=== PATIENT | female | born 1945 | race Hispanic/Latino ===

== ENCOUNTER 2022-05-25 10:20 | Emergency (ER) | payer MEDICARE ==
[~2022-05-25] VITALS: Ht 157.5 cm; Wt 61.4 kg
[2022-05-25] MEDS ORDERED: FAMOTIDINE 20 MG/2 ML VIAL IV STA (10:42)
[2022-05-25] MEDS ORDERED: ONDANSETRON HCL INJ 2MG/ML 2ML 2 MG/ML VIAL IV STA ×2 (10:42→16:44)
[2022-05-25] MEDS ORDERED: TRAMADOL HCL 50 MG TAB PO ONE ×2 (11:00→16:45)
[2022-05-25] MEDS ORDERED: CLONIDINE HCL 0.1 MG TAB PO ONE (11:00)
[2022-05-25] MEDS ORDERED: SODIUM CHLORIDE 0.9% 1000ML 1,000 ML IV SCH (11:15)
[2022-05-25] MEDS ORDERED: SODIUM CHLORIDE 0.9% 1000ML 1,000 ML ONE ×2 (11:34→12:16)
[2022-05-25] MEDS ORDERED: SODIUM CHLORIDE 0.9% 100 ML ONE (11:44)
[2022-05-25] MEDS ORDERED: IOPAMIDOL 370 MG/ML 100 ML INFUS..BTL INJ ONE (11:44)
[2022-05-25] MEDS ORDERED: PROMETHAZINE 12.5MG/ NACL 0.9% 12.5 MG/50 ML BAG IV ONE (11:45)
[2022-05-25] MEDS ORDERED: POTASSIUM CHLORIDE 20 MEQ TAB CR PO ONE (12:00)
[2022-05-25] MEDS ORDERED: POTASSIUM CHLORIDE 20MEQ/100ML 200 ML IV ONE (12:00)
[2022-05-25] MEDS ORDERED: PROMETHAZINE HCL (IM) 25 MG/ML VIAL IM ONE (12:16)
[2022-05-25] MEDS ORDERED: POTASSIUM CHLORIDE 20MEQ/100ML 100 ML ONE (12:17)
[2022-05-25] MEDS ORDERED: LABETALOL HCL 5 MG/ML 20ML VIAL IV STA ×2 (14:14→14:59)
[2022-05-25] MEDS ORDERED: ULTRAM 50MG50 MG PO (14:17)
[2022-05-25] MEDS ORDERED: OMEPRAZOLE40 MG PO (14:17)
[2022-05-25] MEDS ORDERED: TIZANIDINE HCL4 M1 PO (14:17)
[2022-05-25] MEDS ORDERED: CARVEDILOL12.5 MG PO (14:17)
[2022-05-25] MEDS ORDERED: LOSARTAN POTAS100 MG PO (14:17)
[2022-05-25] MEDS ORDERED: SERTRALINE HCL50 MG PO (14:17)
[2022-05-25] MEDS ORDERED: AMILORIDE HCL5 MG PO (14:17)
[2022-05-25] MEDS ORDERED: NIFEDIPINE ER30 M1 PO (14:17)
[2022-05-25] MEDS ORDERED: CLONIDINE HCL0.1 MG PO (14:17)
[2022-05-25] MEDS ORDERED: HYDRALAZINE HCL 20 MG/ML VIAL IV ONE (15:30)
[2022-05-25] MEDS ORDERED: HYDRALAZINE HCL 20 MG/ML VIAL ONE (15:46)
[2022-05-25] MEDS ORDERED: DILTIAZEM HCL 125 ML IV SCH (16:15)
[2022-05-25] MEDS ORDERED: NICARDIPINE 20MG/200ML PREMIX 200 ML ONE (16:23)
[2022-05-25 16:25] VITALS: BP 202/160
[2022-05-25] MEDS ORDERED: NICARDIPINE 20MG/200ML PREMIX 200 ML IV SCH (16:30)
[2022-05-25] MEDS ORDERED: ASPIRIN 81 MG CHEW TAB PO ONE (16:45)
[2022-05-25] MEDS ORDERED: ASPIRIN 81 MG CHEW TAB ONE (16:47)
[2022-05-25] MEDS ORDERED: ONDANSETRON HCL INJ 2MG/ML 2ML 2 MG/ML VIAL ONE (17:03)
[2022-05-25] MEDS ORDERED: TRAMADOL HCL 50 MG TAB ONE (17:03)
== END 2022-05-25 17:00 | disposition other institution (70) ==
LOC: FSED 10:23
DX: R11.2 Nausea with vomiting, unspecified (principal); E87.6 Hypokalemia; I10 Essential (primary) hypertension; R74.8 Abnormal levels of other serum enzymes; M51.86 Other intervertebral disc disorders, lumbar region; E04.1 Nontoxic single thyroid nodule; K57.90 Diverticulosis of intestine, part unspecified, without perforation or abscess without bleeding; I25.10 Atherosclerotic heart disease of native coronary artery without angina pectoris; Z20.822 Contact with and (suspected) exposure to COVID-19; R94.31 Abnormal electrocardiogram [ECG] [EKG]
CPT/HCPCS: 71275; 72132; 74174; 80053; 81003; 83880; 84484; 85025; 93005; 96374; 96375; 99284; J0360; J2405; J2550; J3480; J3490; J7030; J7050; Q9967; U0002